=== PATIENT | female | born 1945 | race Hispanic/Latino ===

== ENCOUNTER → 2018-03-30 | Outpatient (CLI) | payer OTHER, MEDICARE ==
[~2018-03-30] MED LIST: ACET1TAB12 PO; ALEN70TA47 PO; ASPI-1005 PO; ATOR40TA69 PO; BISACODYL PO; DOCU-116 PO; LISI-617 PO; METF500T6 PO; METO-391 PO; NITR0.4T50 SL; NPH,100V11 SQ
== END | disposition home or self-care (01) ==
LOC: RAH 11:05
PROVIDERS: ATTEND Family Medicine
DX: R92.8 Other abnormal and inconclusive findings on diagnostic imaging of breast (principal)
CPT/HCPCS: 77066

== ENCOUNTER → 2018-12-14 | Outpatient (CLI) | payer OTHER, MEDICARE ==
[~2018-12-14] MED LIST changes: +ALEN70TA10 PO; -ALEN70TA47 PO; +METF-444 PO; -METF500T6 PO
== END | disposition home or self-care (01) ==
LOC: RAH 08:13
PROVIDERS: ATTEND Family Medicine
DX: N64.4 Mastodynia (principal)
CPT/HCPCS: 77066

== ENCOUNTER → 2019-01-12 | Outpatient (CLI) | payer OTHER, MEDICARE ==
[2019-01-12 08:44] LABS: CREATININE 0.9 mg/dL (0.5-1.5); POTASSIUM 3.5 mmol/L (3.5-5.1)
== END | disposition home or self-care (01) ==
LOC: LAB 07:55
PROVIDERS: ATTEND Urology
DX: N13.30 Unspecified hydronephrosis (principal)
CPT/HCPCS: 36415; 80048

== ENCOUNTER → 2019-01-14 | Outpatient (CLI) | payer OTHER, MEDICARE ==
[~2019-01-14] MED LIST changes: +IOHEXOL 350 MG/ML 100ML INFUS..BTL IV ONE
== END | disposition home or self-care (01) ==
LOC: RAH 08:40
PROVIDERS: ATTEND Urology
DX: N13.30 Unspecified hydronephrosis (principal)
CPT/HCPCS: 74400; Q9967

== ENCOUNTER → 2019-07-15 | Outpatient (CLI) | payer OTHER, MEDICARE ==
[~2019-07-15] MED LIST changes: -IOHEXOL 350 MG/ML 100ML INFUS..BTL IV ONE; +REGADENOSON 0.4 MG/5 ML PF SYG IVP SCH
== END | disposition home or self-care (01) ==
LOC: SHCH 07:50
PROVIDERS: ATTEND Internal Medicine Cardiovascular Disease
DX: I25.10 Atherosclerotic heart disease of native coronary artery without angina pectoris (principal); Z95.1 Presence of aortocoronary bypass graft
CPT/HCPCS: 78452; 93017; 96374; A9500 ×2; J2785

== ENCOUNTER → 2019-12-01 | Outpatient (CLI) | payer OTHER, MEDICARE ==
[~2019-12-01] MED LIST changes: -REGADENOSON 0.4 MG/5 ML PF SYG IVP SCH
== END | disposition home or self-care (01) ==
LOC: RAH 08:39
PROVIDERS: ATTEND Family Medicine
DX: R92.1 Mammographic calcification found on diagnostic imaging of breast (principal)
CPT/HCPCS: 77066

== ENCOUNTER → 2021-06-13 | Outpatient (CLI) | payer OTHER, MEDICARE ==
[~2021-06-13] VITALS: Ht 162.6 cm; Wt 74.8 kg
[~2021-06-13] MED LIST changes: -ALEN70TA10 PO; +ALEN70TA80 PO; -LISI-617 PO; +LISI-809 PO; +REGADENOSON 0.4 MG/5 ML PF SYG IVP SCH
== END | disposition home or self-care (01) ==
LOC: SHCH 08:09
PROVIDERS: ATTEND Internal Medicine Cardiovascular Disease
DX: I25.10 Atherosclerotic heart disease of native coronary artery without angina pectoris (principal); R06.09 Other forms of dyspnea; R10.9 Unspecified abdominal pain
CPT/HCPCS: 78452; 93017; 96374; A9500 ×2; J2785

== ENCOUNTER → 2022-08-26 | Outpatient (CLI) | payer OTHER, MEDICARE ==
[~2022-08-26] MED LIST changes: -LISI-809 PO; +LISI5TAB21 PO
== END | disposition home or self-care (01) ==
LOC: SHCH 08:58
PROVIDERS: ATTEND Internal Medicine Cardiovascular Disease
DX: I20.9 Angina pectoris, unspecified (principal)
CPT/HCPCS: 78452; 96374; 93017; J2785; A9500 ×2

== ENCOUNTER 2023-04-15 05:45 | Day surgery (SDC) | payer OTHER, MEDICARE ==
[2023-04-13 12:11] LABS: BASOPHILS % (AUTO) 0.5 % (0.0-5.0); EOSINOPHILS % (AUTO) 1.8 % (0.0-8.0); HEMATOCRIT 41.1 % (36-48); LYMPHOCYTES % (AUTO) 19.8 % (21.0-51.0); MEAN CORPUSCULAR HEMOGLOBIN 28.7 pg (27.0-33.0); MEAN CORPUSCULAR HGB CONC 32.4 g/dL (32.0-36.0); MEAN CORPUSCULAR VOLUME 88.6 fL (79-99); MONOCYTES % (AUTO) 11.4 % (3.0-13.0); NEUTROPHILS % (AUTO) 66.2 % (40.0-77.0); PLATELET COUNT (AUTO) 281 K/uL (130-400); RED BLOOD CELL COUNT(AUTO) 4.64 MIL/uL (4.00-5.50); RED CELL DISTRIBUTION WIDTH 14.7 % (11.0-15.5); WHITE BLOOD COUNT (AUTO) 11.5 K/uL (4.8-10.8)
[2023-04-13 12:19] LABS: POTASSIUM 4.5 mmol/L (3.5-5.1)
[2023-04-13 12:20] LABS: APPEARANCE,URINE CLEAR (CLEAR); BILIRUBIN,URINE NEGATIVE (NEGATIVE); COLOR,URINE YELLOW (YELLOW); GLUCOSE, URINE (UA) >=1000 mg/dL (NEGATIVE); KETONES,URINE NEGATIVE (NEGATIVE); LEUKOCYTE ESTERASE ,URINE 25 Leu/uL (NEGATIVE); NITRATE,URINE 2+ (NEGATIVE); OCCULT BLOOD,URINE MODERATE (NEGATIVE); PH,URINE 5.5 (5.0-8.0); PROTEIN,URINE NEGATIVE (NEGATIVE); UROBILINOGEN,URINE 0.2 mg/dL (0.2-1.0)
[2023-04-13 12:24] LABS: BACTERIA,URINE MANY /HPF (None Seen); SQUAMOUS EPITHELIAL CELL,UR RARE /HPF (0-2)
[2023-04-13 12:25] VITALS: BP 126/65
[2023-04-13 12:27] LABS: INR 0.94 (0.85-1.15); PROTHROMBIN TIME 10.3 SEC (9.6-11.6)
[2023-04-13 12:28] LABS: PARTIAL THROMBOPLASTIN TIME 26.1 SEC (26.3-35.5)
[2023-04-13 12:31] LABS: B-TYPE NATRIURETIC PEPTIDE 93 pg/mL (0-100)
[~2023-04-15] VITALS: Ht 162.6 cm; Wt 71.3 kg
[2023-04-15] VITALS (9 sets, daily range): BP systolic 94–119; BP diastolic 43–66
[~2023-04-15 05:45] MED LIST changes: -ACET1TAB12 PO; -ASPI-1005 PO; -ATOR40TA69 PO; +ATOR40TA71 PO; -BISACODYL PO; +CHOL200013 PO; +EMPA25TA PO; +HYDR12.54 PO; +INSU100V37 SQ; +ISOS30TA92 PO; +LORA10TA7 PO; -METF-444 PO; +METF-446 PO; -METO-391 PO; +METO-408 PO; -NPH,100V11 SQ; +PYRI100L2 PO; -REGADENOSON 0.4 MG/5 ML PF SYG IVP SCH; +VITAMIN B12 PO; +ZINC220T4 PO
[2023-04-15] MEDS ORDERED: 0.9%NACL 1000ML 1,000 ML IV ONE (07:19)
[2023-04-15] MEDS ORDERED: LIDOCAINE HCL 400MG/20ML VIAL ONE (08:53)
[2023-04-15] MEDS ORDERED: MIDAZOLAM HCL 1 MG/ML 2ML VIAL ONE (08:53)
[2023-04-15] MEDS ORDERED: NITROGLYCERIN 50MG VIAL ONE (08:53)
[2023-04-15] MEDS ORDERED: IOHEXOL 350 MG/ML 100ML INFUS..BTL IV ONE (08:53)
[2023-04-15] MEDS ORDERED: HEPARIN 10,000 UNIT/10ML (1,000 UNIT/ML) VIAL ONE (08:53)
[2023-04-15] MEDS ORDERED: IOHEXOL-350 50ML VIAL IV ONE (09:17)
[2023-04-15] MEDS ORDERED: GLUCAGON 1MG KIT 1 MG ML IM PRN (10:00)
[2023-04-15] MEDS ORDERED: DEXTROSE 50%-WATER 50 ML DISP.SYRIN IV PRN (10:00)
== END 2023-04-15 14:30 | disposition home or self-care (01) ==
LOC: DAH 05:45
PROVIDERS: ATTEND Internal Medicine Cardiovascular Disease
DX: I25.119 Atherosclerotic heart disease of native coronary artery with unspecified angina pectoris (principal); E11.22 Type 2 diabetes mellitus with diabetic chronic kidney disease; I12.9 Hypertensive chronic kidney disease with stage 1 through stage 4 chronic kidney disease, or unspecified chronic kidney disease; N18.9 Chronic kidney disease, unspecified; E11.40 Type 2 diabetes mellitus with diabetic neuropathy, unspecified; E78.5 Hyperlipidemia, unspecified; Z79.84 Long term (current) use of oral hypoglycemic drugs; Z79.01 Long term (current) use of anticoagulants; Z79.899 Other long term (current) drug therapy; Z98.890 Other specified postprocedural states; Z90.710 Acquired absence of both cervix and uterus; Z82.49 Family history of ischemic heart disease and other diseases of the circulatory system; Z80.9 Family history of malignant neoplasm, unspecified
CPT/HCPCS: 80048; 83880; 85025; 85610; 85730; 87088; 81001; 36415; 71045; 93005; 93459; 87077; 87186; 82948 ×2; C1894; C1760; J3490; J7030; J2250; J1644; Q9967 ×2; A4215; A4222; A4221; A4663; A4216; A4606; Q9965; A4223 ×3; 99156; 99157

== ENCOUNTER → 2024-06-20 | Outpatient (CLI) | payer OTHER, MEDICARE ==
[2024-06-20 13:04] LABS: CHOLESTEROL 110 mg/dL (<200); HDL CHOLESTEROL 43 mg/dL (35-85); LDL DIRECT 53 mg/dL (0-99); TRIGLYCERIDES 85 mg/dL (30-200)
== END | disposition home or self-care (01) ==
LOC: LAB 09:09
PROVIDERS: ATTEND Internal Medicine Cardiovascular Disease
DX: E78.5 Hyperlipidemia, unspecified (principal)
CPT/HCPCS: 36415; 80061

== ENCOUNTER → 2025-09-05 | Outpatient (CLI) | payer OTHER, MEDICARE ==
--- NOTE | 2025-09-05 14:51 | HMCIMG ---
BILATERAL BREAST ULTRASOUND: CLINICAL HISTORY: Lump in the right breast Finding: Real-time examination of the both breasts demonstrates heterogeneously echotexture throughout both breasts. The right breast at 12:00 there is a solid hypoechoic lesion measuring 2.1 x 1.3 x 2.2 cm with irregular contour. I would recommend ultrasound-guided biopsy. Otherwise the remaining right breast and left breast has no lesion seen. There is benign-appearing axillary lymph node on the right measuring 0.9 x 0.7 x 1.1 cm. On the left side axillary lymph node measuring 1.7 x 0.9 x 2.1 cm.. IMPRESSION: Irregular shaped ill-defined hypoechoic solid lesion seen in the right breast at 12:00 which is amenable for ultrasound-guided biopsy. FINAL ASSESSMENT: ACR: BI-RAD -4. Suspicious Finding.
--- NOTE | 2025-09-05 14:54 | HMCIMG ---
DIGITAL bilateral DIAGNOSTIC MAMMOGRAM Technique: The digital mammographic examination of both breasts in craniocaudal, mediolateral oblique views along with CAD was obtained. Coned-down compression view of the right breast was also obtained. History: This is a 80 years year-old female 8, para6 Ab 2 . Patient has no family history of breast cancer. Patient has no complaint patient is here for unspecified right breast mass Reference:Prior mammogram from 08/23/2024, 12/01/2019 are available.. Breast composition: Breast composition C: The breasts are heterogeneously dense, which may obscure small masses. Finding: The digital mammographic examination of both breasts in craniocaudal and mediolateral oblique view along with CAD demonstrates a ill-defined density at 12:00 which was seen before has increased in size. Ultrasound demonstrate to be a solid hypoechoic lesion. There is a dystrophic calcification seen in the right breast upper outer quadrant with biopsy marker clips in place with the prior catheter reported being benign. There is benign vascular calcification of both breasts suggesting of atherosclerotic changes.. There is no evidence of any dendritic mass, cluster microcalcification or architectural distortion. The retromammary fat appears to be normal. IMPRESSION: Right breast at 12:00 there is a 2 cm ill-defined hypoechoic lesion seen on ultrasound and also seen on mammography which is amenable for ultrasound-guided biopsy for histological sampling. Dystrophic calcification seen in right breast which was biopsied in the past with a biopsy marker in place.. FINAL ASSESSMENT: ACR: BI-RAD -4. Suspicious Finding. NOTE: IF A WORK-UP OF THIS PATIENT LEADS TO A BIOPSY, PLEASE FORWARD A COPY OF THE PATHOLOGY REPORT TO OUR OFFICE REQUIRED BY SA EFFECTIVE JULY 26, 1994. A NEGATIVE MAMMOGRAM SHOULD NOT PRECLUDE BIOPSY OF A CLINICALLY PALPABLE SUSPICIOUS MASS, 10% OF BREAST CANCERS ARE MAMMOGRAPHICALLY OCCULT. THIS MAMMOGRAPHY FACILITY IS FULLY ACCREDITED BY THE [employer]OD AND [employer]UG [employer] (FDA). THANK YOU FOR THIS REFERRAL.
== END | disposition home or self-care (01) ==
LOC: RAH 07:45
PROVIDERS: ATTEND Family Medicine
DX: N63.15 Unspecified lump in the right breast, overlapping quadrants (principal)
CPT/HCPCS: 77066

== ENCOUNTER → 2025-10-03 | Outpatient (CLI) | payer OTHER, MEDICAID ==
[2025-10-03 08:43] LABS: INR 1.03 (0.85-1.15)
--- NOTE | 2025-10-03 10:40 | NUR ---
U/S GD RT BREAST BX PROCEDURE PERFORMED BY DR JOSEPH. PUNCTURE SITE RT BREAST AND PATIENT TOLERATED PROCEDURE WELL. SPECIMEN X 3 COLLECTED AND SENT TO LAB. END OF PROCEDURE AT 1020. BIOPSY NEEDLE REMOVED, BREAST TISSUE MARKER DEPLOYED AND DRESSING APPLIED. NO BLEEDING NOTED. TISSUE MARKER VERIFIED UNDER MAMMOGRAM PER DR JOSEPH. DISCHARGE INSTRUCTIONS GIVEN TO PATIENT AND VERBALIZED UNDERSTANDING. DISCHARGED VIA AMBULATORY AAO X3 WITH NO C/O PAIN.
--- NOTE | 2025-10-03 10:52 | HMCIMG ---
PERCUTANEOUS ULTRASOUND-GUIDED BIOPSY OF right BREAST MASS: CLINICAL HISTORY: This is a 80 [id number] female with right for ultrasound-guided biopsy. The risk and benefit was explained to the patient. The risks include bleeding and infection. The patient consented to the procedure. Procedure: Under ultrasound guidance right breast lesion at 12:00 was localized. After sterile prep and drape, 1% Xylocaine was used for local anesthetic. Using a 14-gauge Bard gun a total of 3 core biopsy was obtained. A biopsy marker was left in place. The specimen was sent for histology and cell block. Patient tolerated procedure well. IMPRESSION: FINAL ASSESSMENT: Post-procedure Mammogram for Marker Placement. 1. PERCUTANEOUS ULTRASOUND-GUIDED BIOPSY OF right BREAST WITH SPECIMENS SENT FOR HISTOLOGY AND CELL BLOCK. THE PATIENT TOLERATED PROCEDURE WELL. PATHOLOGY REPORT IS PENDING. 2. PATIENT IS TO HAVE A POST BIOPSY MARKER PLACEMENT UNILATERAL right BREAST MAMMOGRAM.
--- NOTE | 2025-10-03 10:54 | HMCIMG ---
DIGITAL right DIAGNOSTIC MAMMOGRAM Technique: The digital mammographic examination of right breast post biopsy in craniocaudal, mediolateral oblique views along with CAD was obtained. History: This is a 80 years year-old female 8, para6 Ab2 . Patient has no family history of breast cancer. Patient has no complaint Reference:Prior mammogram from 09/05/2025, 08/23/2024 and 12/01/2019 are available.. Breast composition: Breast composition C: The breasts are heterogeneously dense, which may obscure small masses. Finding: The digital mammographic examination of right breast in craniocaudal and mediolateral oblique view along with CAD demonstrates biopsy marker at 12:00 to be in satisfactory position. There is under biopsy marker with calcified lesion with surgical clips in place.. There is no evidence of any dendritic mass, cluster microcalcification or architectural distortion. The retromammary fat appears to be normal. IMPRESSION: Biopsy marker right breast at 12:00 postbiopsy B in satisfactory position.. FINAL ASSESSMENT: Post-procedure Mammogram for Marker Placement. NOTE: IF A WORK-UP OF THIS PATIENT LEADS TO A BIOPSY, PLEASE FORWARD A COPY OF THE PATHOLOGY REPORT TO OUR OFFICE REQUIRED BY SA EFFECTIVE JULY 26, 1994. A NEGATIVE MAMMOGRAM SHOULD NOT PRECLUDE BIOPSY OF A CLINICALLY PALPABLE SUSPICIOUS MASS, 10% OF BREAST CANCERS ARE MAMMOGRAPHICALLY OCCULT. THIS MAMMOGRAPHY FACILITY IS FULLY ACCREDITED BY THE [employer] AND [employer] (FDA). THANK YOU FOR THIS REFERRAL.
== END ==
LOC: RAH 08:16
PROVIDERS: ATTEND Family Medicine
DX: R92.8 Other abnormal and inconclusive findings on diagnostic imaging of breast (principal); C50.411 Malignant neoplasm of upper-outer quadrant of right female breast; I12.9 Hypertensive chronic kidney disease with stage 1 through stage 4 chronic kidney disease, or unspecified chronic kidney disease; E11.22 Type 2 diabetes mellitus with diabetic chronic kidney disease; N18.2 Chronic kidney disease, stage 2 (mild); E78.2 Mixed hyperlipidemia; E11.40 Type 2 diabetes mellitus with diabetic neuropathy, unspecified; E78.00 Pure hypercholesterolemia, unspecified; F32.A Depression, unspecified; Z88.1 Allergy status to other antibiotic agents; Z79.899 Other long term (current) drug therapy
CPT/HCPCS: 19083; 77065; 85610; 85730; 88361; 36415; 88305; 88342; 88341; A4215 ×2